=== PATIENT | female | born 1980 | race Caucasian/White ===

== ENCOUNTER 2016-05-15 15:20 | Emergency (ER) | payer OTHER ==
[2016-05-15] MEDS ORDERED: ACETAMINOPHEN 500 MG TABLET ONE (15:40)
[2016-05-15] MEDS ORDERED: ONDANSETRON 4 MG ODT TAB ONE (15:41)
[2016-05-15] MEDS ORDERED: KETOROLAC TROMETHAMINE 60 MG/2 ML VIAL ONE (15:41)
--- NOTE | 2016-05-15 16:42 | RAD ---
Exam: Three-view left wrist COMPARISON: None INDICATION: Soccer injury, left wrist pain. FINDINGS: PA, lateral and oblique views of the left wrist were obtained. There is a comminuted articular fracture of the distal left radius which demonstrates dorsal in relation to distal fracture fragment. Carpal alignment is maintained. No additional fracture is identified. IMPRESSION: Comminuted, dorsally angulated intra-articular fracture of the distal left radius.
[2016-05-15] MEDS ORDERED: HYDROMORPHONE HCL 1 MG/ML SYRINGE ONE (17:15)
[2016-05-15] MEDS ORDERED: MIDAZOLAM HCL 1 MG/ML 2ML VIAL ONE ×2 (17:25→17:47)
--- NOTE | 2016-05-15 18:16 | RAD ---
Exam: Two-view left wrist INDICATION: Postreduction. FINDINGS: PA and lateral views of the left wrist were obtained at 1805 hours and compared with a similar exam obtained at 1540 hours. There is improved alignment of the comminuted intra-articular fracture of the distal left radius following reduction. Displacement and angulation has decreased. Carpal alignment is maintained. Soft tissue swelling is again noted. IMPRESSION: Improved alignment of the intra-articular fracture of the distal left radius postreduction.
--- NOTE | 2016-05-15 19:01 | RAD ---
Exam: Two-view left wrist INDICATION: Postreduction left wrist. FINDINGS: PA and lateral views of the left wrist were obtained at 1830 hours and compared with similar examinations obtained at 1805 hours and 1540 hours. Overlying splinting material obscures fine bony detail. The comminuted , intra-articular fracture of the distal left radius demonstrates slight interval increase in displacement of the fracture fragments along the articular surface of the radius, with approximately 2 mm of radial displacement of the dominant radial fracture fragment. There is minor dorsal displacement in evaluation as seen earlier. Carpal alignment is maintained. IMPRESSION: Slight interval increase in distraction of the fracture fragments involving the articular surface of the radius by approximately 2 mm.
[2016-05-15] MEDS ORDERED: ONDANSETRON 4 MG/2ML 2 ML VIAL ONE (19:10)
== END 2016-05-15 20:03 | disposition home or self-care (01) ==
LOC: ED 15:20
DX: S52.502A Unspecified fracture of the lower end of left radius, initial encounter for closed fracture (principal); W21.02XA Struck by soccer ball, initial encounter; Y93.66 Activity, soccer; Y92.322 Soccer field as the place of occurrence of the external cause
CPT/HCPCS: 73110; 73100 ×2; 96375 ×2; 99284 ×2; 25605 ×2; 96372; 96374; J1170; J1885; A9270 ×2; J2250 ×2; J2405